=== PATIENT | male | born 1965 | race Caucasian/White ===

== ENCOUNTER 2018-01-02 04:55 | Inpatient (IN) | payer OTHER ==
[2018-01-02] MEDS ORDERED: ACETAMINOPHEN 325 MG TAB PO (05:30)
[2018-01-02] MEDS ORDERED: ALBUTEROL/IPRATROPIUM (NEB) 3 ML AMP HHN (05:30)
[2018-01-02] MEDS ORDERED: NACL 0.9% 3 ML SYG IV (05:30)
[2018-01-02] MEDS: DEXTROSE 5%-0.45% NACL 1,000 ML IV ×4 (05:58→21:39)
[2018-01-02] MEDS: metroNIDAZOLE 500 MG/NS (PMX) 100 ML IVPB ×3 (05:58→22:24)
[2018-01-02 06:27] LABS: ADD MAN DIFF? NO
[2018-01-02 06:34] LABS: WHITE BLOOD COUNT 7.4 10^3/ul (4.8-10.8)
[2018-01-02 06:34] LABS: BASOPHILS % 0.1 % (0.0-2.0); EOSINOPHILS % 0.4 % (0.0-7.0); HEMATOCRIT 41.4 % (42.0-52.0); HEMOGLOBIN 13.5 g/dl (14.0-18.0); LYMPHOCYTES # 2.3 10^3/ul (0.8-2.9); LYMPHOCYTES % 30.7 % (15.0-51.0); MEAN CORPUSCULAR HEMOGLOBIN 27.8 pg (29.0-33.0); MEAN CORPUSCULAR HGB CONC 32.6 g/dl (32.0-37.0); MEAN CORPUSCULAR VOLUME 85.2 fl (82.0-101.0); MEAN PLATELET VOLUME 9.4 fl (7.4-10.4); MONOCYTE # 0.8 10^3/ul (0.3-0.9); MONOCYTES % 10.2 % (0.0-11.0); NEUTROPHIL # 4.3 10^3/ul (1.6-7.5); NEUTROPHILS % 58.2 % (39.0-77.0); PLATELET COUNT 204 10^3/UL (140-415); RED BLOOD COUNT 4.86 10^6/ul (4.70-6.10); RED CELL DISTRIBUTION WIDTH 14.1 % (11.5-14.5)
[2018-01-02 07:10] LABS: ALANINE AMINOTRANSFERASE 55 IU/L (13-69); ALBUMIN 3.7 g/dl (3.3-4.9); ALBUMIN/GLOBULIN RATIO 1.05; ALKALINE PHOSPHATASE 95 IU/L (42-121); ANION GAP 15 (8-16); ASPARTATE AMINO TRANSFERASE 38 IU/L (15-46); BILIRUBIN,INDIRECT 1.3 mg/dl (0-1.1); BILIRUBIN,TOTAL 1.3 mg/dl (0.2-1.3); BLOOD UREA NITROGEN 16 mg/dl (7-20); CALCIUM 8.2 mg/dl (8.4-10.2); CARBON DIOXIDE 27 mmol/L (21-31); CHLORIDE 99 mmol/L (97-110); CREATININE 0.75 mg/dl (0.61-1.24); GLUCOSE 90 mg/dl (70-220); MAGNESIUM 1.7 mg/dl (1.7-2.5); PHOSPHORUS 3.4 mg/dl (2.5-4.9); POTASSIUM 3.6 mmol/L (3.5-5.1); SODIUM 137 mmol/L (135-144); TOTAL PROTEIN 7.2 g/dl (6.1-8.1)
[2018-01-02] MEDS: FAMOTIDINE 20 MG INJ IV ×2 (08:37→20:10)
[2018-01-02] MEDS: CIPROFLOXACIN 400MG/D5W 200 ML IVPB ×2 (08:37→20:10)
[2018-01-02] MEDS: DULOXETINE 20 MG CAP DR PO (08:49)
[2018-01-02] MEDS: RITONAVIR 100 MG CAP PO (08:49)
[2018-01-02] MEDS: ATAZANAVIR 150 MG CAP PO (08:49)
[2018-01-02] MEDS: EMTRICITABINE/TENOFOVIR TAB PO (08:50)
[2018-01-02] MEDS: TRIMETHOPRIM/SULFAMETHOX (DS) TAB PO (18:16)
[2018-01-02] MEDS ORDERED: EMTRICITABINE/TENOFOV ALAFENAM 1 EACH TABLET PO (18:30)
[2018-01-02] MEDS: EMTRICITABINE/TENOFOV ALAFENAM 1 EACH TABLET PO (20:10)
[2018-01-03] MEDS: DEXTROSE 5%-0.45% NACL 1,000 ML IV ×3 (03:22→15:00)
[2018-01-03] MEDS: metroNIDAZOLE 500 MG/NS (PMX) 100 ML IVPB ×3 (05:47→22:40)
[2018-01-03 06:23] LABS: ADD MAN DIFF? NO
[2018-01-03 06:31] LABS: BASOPHILS % 0.2 % (0.0-2.0); EOSINOPHILS # 0.1 10^3/ul (0.0-0.5); HEMATOCRIT 40.1 % (42.0-52.0); HEMOGLOBIN 12.9 g/dl (14.0-18.0); LYMPHOCYTES # 2.4 10^3/ul (0.8-2.9); MEAN CORPUSCULAR HEMOGLOBIN 27.5 pg (29.0-33.0); MEAN CORPUSCULAR HGB CONC 32.2 g/dl (32.0-37.0); MEAN CORPUSCULAR VOLUME 85.5 fl (82.0-101.0); MEAN PLATELET VOLUME 9.2 fl (7.4-10.4); MONOCYTE # 0.7 10^3/ul (0.3-0.9); MONOCYTES % 12.9 % (0.0-11.0); NEUTROPHIL # 1.9 10^3/ul (1.6-7.5); NEUTROPHILS % 37.7 % (39.0-77.0); PLATELET COUNT 206 10^3/UL (140-415); RED BLOOD COUNT 4.69 10^6/ul (4.70-6.10)
[2018-01-03 06:59] LABS: ANION GAP 10 (8-16); BLOOD UREA NITROGEN 12 mg/dl (7-20); CALCIUM 8.7 mg/dl (8.4-10.2); CARBON DIOXIDE 31 mmol/L (21-31); CHLORIDE 104 mmol/L (97-110); CREATININE 0.84 mg/dl (0.61-1.24); GLUCOSE 109 mg/dl (70-220); PHOSPHORUS 3.4 mg/dl (2.5-4.9); POTASSIUM 4.5 mmol/L (3.5-5.1); SODIUM 140 mmol/L (135-144)
[2018-01-03] MEDS: CIPROFLOXACIN 400MG/D5W 200 ML IVPB ×2 (09:04→20:51)
[2018-01-03] MEDS: FAMOTIDINE 20 MG INJ IV ×2 (09:04→20:51)
[2018-01-03] MEDS: DULOXETINE 20 MG CAP DR PO (09:05)
[2018-01-03] MEDS: TRIMETHOPRIM/SULFAMETHOX (DS) TAB PO (09:05)
[2018-01-03 11:11] LABS: LYMPHOCYTE - % CD4 (HELPER) 8 % (30-61); LYMPHOCYTE - %CD8 (SUPPRESSOR) 56 % (12-42); LYMPHOCYTE - ABSOLUTE 2418 cells/uL (850-3900); LYMPHOCYTE - ABSOLUTE CD4 192 cells/uL (490-1740); LYMPHOCYTE - ABSOLUTE CD8 1357 cells/uL (180-1170); LYMPHOCYTE - CD4/CD8 RATIO 0.14 (0.86-5.00)
[2018-01-03] MEDS: EMTRICITABINE/TENOFOV ALAFENAM 1 EACH TABLET PO (11:32)
[2018-01-03] MEDS: morphine 2 MG INJ IV (11:32)
[2018-01-03] MEDS: ONDANSETRON 4 MG INJ IV ×2 (15:00→23:53)
[2018-01-04] MEDS: DEXTROSE 5%-0.45% NACL 1,000 ML IV ×4 (04:45→23:58)
[2018-01-04] MEDS: metroNIDAZOLE 500 MG/NS (PMX) 100 ML IVPB ×3 (06:27→22:19)
[2018-01-04] MEDS ORDERED: DIPHENOXYLATE/ATROPINE TAB PO (08:00)
[2018-01-04] MEDS: DULOXETINE 20 MG CAP DR PO (09:00)
[2018-01-04] MEDS: EMTRICITABINE/TENOFOV ALAFENAM 1 EACH TABLET PO (09:00)
[2018-01-04] MEDS: FAMOTIDINE 20 MG INJ IV ×2 (09:51→20:57)
[2018-01-04] MEDS: CIPROFLOXACIN 400MG/D5W 200 ML IVPB ×2 (09:53→20:57)
[2018-01-04] MEDS: TRIMETHOPRIM/SULFAMETHOX (DS) TAB PO (09:53)
[2018-01-04] MEDS: morphine 2 MG INJ IV (18:16)
[2018-01-05] MEDS: metroNIDAZOLE 500 MG/NS (PMX) 100 ML IVPB (05:46)
[2018-01-05] MEDS: TRIMETHOPRIM/SULFAMETHOX (DS) TAB PO (08:24)
[2018-01-05] MEDS: FAMOTIDINE 20 MG INJ IV (08:24)
[2018-01-05] MEDS: DULOXETINE 20 MG CAP DR PO (08:24)
[2018-01-05] MEDS: CIPROFLOXACIN 400MG/D5W 200 ML IVPB (08:24)
[2018-01-05] MEDS: EMTRICITABINE/TENOFOV ALAFENAM 1 EACH TABLET PO (08:25)
== END 2018-01-05 11:30 | disposition home or self-care (01) | DRG 977 ==
LOC: MS2 04:55
DX: K52.9 Noninfective gastroenteritis and colitis, unspecified (principal); B20 Human immunodeficiency virus [HIV] disease; F15.10 Other stimulant abuse, uncomplicated; G43.909 Migraine, unspecified, not intractable, without status migrainosus
CPT/HCPCS: 74018; 80048; 80053; 83735; 84100; 85025; 86360; 87045; 87075; 87177; 87536